=== PATIENT | male | born 1960 | race Caucasian/White ===

== ENCOUNTER 2018-08-02 08:59 | Outpatient (REF) | payer BC, SELFPAY ==
[2018-08-02 13:10] LABS: Cholesterol 198 mg/dL (50-200); HDL Cholesterol 64 mg/dL (40-60); LDL CHOLESTEROL 117 mg/dL (<100); Triglyceride 69 mg/dL (30-150)
== END 2018-08-02 09:19 ==
LOC: NCHCN 08:59
PROVIDERS: PCP Internal Medicine; Visit Provider Internal Medicine
DX: Z00.00 Encounter for general adult medical examination without abnormal findings (principal); Z13.220 Encounter for screening for lipoid disorders
CPT/HCPCS: 80061; 83721

== ENCOUNTER 2020-01-21 16:15 | Outpatient (REF) | payer BC, SELFPAY ==
[2020-01-21 21:24] LABS: Calculated LDL 122 mg/dL (<100); Cholesterol 217 mg/dL (<200); HDL Cholesterol 62 mg/dL (40-60); Triglyceride 166 mg/dL (<150)
== END 2020-01-21 16:35 ==
LOC: NCHCN 16:15
PROVIDERS: PCP Internal Medicine; Visit Provider Family Medicine
DX: Z00.00 Encounter for general adult medical examination without abnormal findings (principal); Z13.220 Encounter for screening for lipoid disorders
CPT/HCPCS: 80061

== ENCOUNTER 2021-01-22 10:00 | Outpatient (REF) | payer BC, SELFPAY ==
[2021-01-22 13:51] LABS: Calculated LDL 150 mg/dL (<100); Cholesterol 231 mg/dL (<200); HDL Cholesterol 66 mg/dL (40-60); Triglyceride 75 mg/dL (<150)
== END 2021-01-22 10:01 | disposition home or self-care (01) ==
LOC: NCHCN 10:00
PROVIDERS: PCP Internal Medicine; Visit Provider Family Medicine
DX: Z13.220 Encounter for screening for lipoid disorders (principal)
CPT/HCPCS: 80061

== ENCOUNTER 2021-07-27 09:12 | Outpatient (REF) | payer BC, SELFPAY ==
[2021-07-27 17:30] LABS: Calculated LDL 124 mg/dL (<100); Cholesterol 206 mg/dL (<200); HDL Cholesterol 69 mg/dL (40-60); Triglyceride 68 mg/dL (<150)
== END 2021-07-27 09:13 | disposition home or self-care (01) ==
LOC: NCHCN 09:12
PROVIDERS: PCP Internal Medicine; Visit Provider Family Medicine
DX: Z13.220 Encounter for screening for lipoid disorders (principal)
CPT/HCPCS: 80061

== ENCOUNTER 2022-03-31 16:31 | Outpatient (REF) | payer BC, SELFPAY ==
[2022-03-31 14:36] LABS: ALT 44 U/L (16-63); AST 25 U/L (15-37); Albumin 4.3 g/dL (3.4-5.0); Alkaline Phosphatase 73 U/L (46-116); Anion Gap 8.2 mmol/L (3-11); BUN 15 mg/dL (7-18); Bilirubin, Total 1.3 mg/dL (0.2-1.0); CO2 28.8 mmol/L (21.0-32.0); Calcium 9.1 mg/dL (8.5-10.1); Calculated LDL 142 mg/dL (<100); Chloride 103 mmol/L (98-107); Cholesterol 228 mg/dL (<200); Estimated GFR 86.16 (mL/min/1.73m2); Glucose 96 mg/dL (74-106); HDL Cholesterol 61 mg/dL (40-60); Potassium 4.1 mmol/L (3.5-5.1); Sodium 140 mmol/L (136-145); Total Protein 6.9 g/dL (6.4-8.2); Triglyceride 128 mg/dL (<150)
== END 2022-03-31 16:32 | disposition home or self-care (01) ==
LOC: NCHCN 16:31
PROVIDERS: PCP Internal Medicine; Visit Provider Family Medicine
DX: Z13.220 Encounter for screening for lipoid disorders (principal); Z00.00 Encounter for general adult medical examination without abnormal findings; N40.0 Benign prostatic hyperplasia without lower urinary tract symptoms
CPT/HCPCS: 80053; 80061

== ENCOUNTER 2023-01-11 08:35 | Day surgery (SDC) | payer BC, SELFPAY ==
[2023-01-11 08:52] VITALS: BP 118/84; PULSE 58; RESP 16; TEMP 36.4; O2SAT 98
[2023-01-11] MEDS: Lactated Ringers 1,000 ML 80 ML IV (09:15)
--- NOTE | 2023-01-11 10:11 | W.ANESPRE ---
General Info Date of Service Date Performed: 01/11/23 Height: 5 ft 9 in Weight: 80 kg Body Mass Index (BMI): 26.0 Surgical Procedure: Operation Date: 01/11/23 09:50 Proposed Procedure Side Surgeon p Colonoscopy Jarrett Broussard MD Actual Procedure Side Surgeon p Colonoscopy Not Applicable Jarrett Broussard MD Meds Allergies and Home Medications Allergies Allergy/AdvReac Type Severity Reaction Status Date / Time No Known Allergies Allergy Verified 01/11/23 08:51 Home Medication Medication Instructions Recorded ibuprofen 200 mg capsule 200 mg PO Q6H PRN 08/26/22 bisacodyl 5 mg tablet,delayed 5 mg PO ONCE #4 tabs 12/15/22 release (Dulcolax (bisacodyl)) polyethylene glycol 3350 17 17 g PO ONCE #238 grams 12/15/22 gram/dose oral powder Current Visit Medications: Current Medications Generic Name Dose Route Start Last Admin Trade Name Freq PRN Reason Stop Dose Admin Ringer's Solution 1,000 mls @ 80 mls/hr 01/11/23 06:00 01/11/23 09:15 IV 02/09/23 23:59 80 mls/hr INFUSION FRANKLIN Administration IV Miscellaneous Supplies 1 each 01/11/23 06:00 Iv Access IV 02/09/23 23:59 DIRECTED [place]LIN Sodium Chloride 0 ml 01/11/23 06:00 Normal Saline Flush 10 Ml Syr IV 02/09/23 23:59 PRN PRN Sodium Chloride 0 ml 01/11/23 06:00 Normal Saline 10 Ml Vial IJ 02/09/23 23:59 DIRECTED PRN Sterile Water 0 ml 01/11/23 06:00 Water,Injection,Sterile 10 Ml Vial IJ 02/09/23 23:59 DIRECTED PRN PFSH Active Problems Active Problems: Problem Status Onset Code 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 History of eustachian tube dysfunction Z86.69 Medical History Medical History BPH (benign prostatic hyperplasia) Cerumen impaction Hyperlipidemia Screening for colon cancer Surgical History Surgical History Hx of foot surgery Tobacco Smoking/Tobacco Use Status: Never Alcohol Alcohol Intake: current Alcohol intake frequency: 0-2 drinks per day Substance Use Substance use: Never Substance use type: does not use Details: alcohol t-3 Vital Signs and Lab Results Vital Signs Most Recent Vital Signs in EMR: Most Recent Vital Signs Temp Pulse Resp BP Pulse Ox 36.4 C L 58 L 16 118/84 98 01/11/23 08:52 01/11/23 08:52 01/11/23 08:52 01/11/23 08:52 01/11/23 08:52 Lab Results Blood Type / Crossmatch: No Data to Display Complete Blood Count: No Data to Display Complete Metabolic Panel: No Data to Display Liver Function Panel: No Data to Display Coagulation Panel: No Data to Display Cardiac Panel: No Data to Display Arterial Blood Gas: No Data to Display Venous Blood Gas: No Data to Display Pancreas Panel: No Data to Display Thyroid Panel: No Data to Display Infectious Disease: No Data to Display Blood Cultures: No Data to Display Toxicology Panel: No Data to Display Anesthesia Assessment and Plan Anesthesia History Personal History: No History of Anesthesia Complications Family History: No Family History of Anesthesia Complications Exercise Tolerance Exercise Tolerance: Metabolic Equivalents>4 Pertinent Negatives Pertinent Negatives: No Symptoms of GERD Cardiac & Pulmonary Exam Cardiac Exam: Normal S1/S2 Heart Sounds Pulmonary Exam: Clear Bilateral Breath Sounds Implantable Cardiac Device Does patient have a Pacemaker or an ICD?: No Airway Exam Known Difficult Airway: No Mallampati Class: 2 Mouth Opening: Normal (> 3cm) Thyromental Distance: Greater than 3 cm Neck Range of Motion: Full ROM Neck Circumference: Normal Teeth Condition: Normal Dentition ASA Classification ASA Score: ASA 2 Emergency Case?: No NPO Status NPO Status: NPO Clears >2 hours, Solids >8 hours Anesthesia Plan Resuscitation Status: Full Code Anesthesia Technique: General Anesthesia Airway Planned: Natural Airway Monitors Used: Standard Monitors
[2023-01-11 10:12] VITALS: BMI 26.0
--- NOTE | 2023-01-11 10:23 | BOWEL_PTH ---
PATIENT: Kris Diaz LOC: [facility] U#:[id number] AGE/SX: 62/M ROOM: RE01/11/[address]: Jarrett Broussard : 1960 BED: DIS: 01/11/2023 SPEC #: [id number] RECD: 01/11/23 12:54 STATUS: LISA RE #: [id number] STAN: 01/11/23 10:[address]: Jarrett Broussard DEPT: Surgical Specimen RECD BY: Kenya Riddle ENTERED: 01/11/23 12:56 SP TYPE: Bowel OTHR DR: Joe Wilkins Tissues: 1 - BIOPSY BOWEL 2 - BIOPSY BOWEL 3 - BIOPSY BOWEL Procedures: GROSS AND MICRO LEVEL 4 Comments: [id number]
[2023-01-11 10:50] VITALS: BP 108/76; PULSE 68; RESP 18; TEMP 35.6; O2SAT 97
--- NOTE | 2023-01-11 11:01 | COLE_ITS ---
Date of service: 01/11/23 Time of Service: 11:01 Colonoscopy Report Procedure Description: Procedures performed: 1. Colonoscopy with snare polypectomy x2 2. Cold forceps polypectomy x1 3. Ablation/fulguration/destruction of colon polyp x3 Preoperative diagnosis: Screening colonoscopy Postoperative diagnosis: Colon polyps, mild grade 1 internal hemorrhoids Surgeon: Radha Broussard Anesthesia: Shon Indication for procedure: Patient is a 62-year-old man with no prior colo noscopy. No family history of colon cancer. No symptoms. Findings: In the proximal sigmoid colon a 10-12 mm pedunculated polyp was removed with hot snare technique. It was removed complete, as 1 piece. In the distal sigmoid colon another 5-7 mm sessile polyp was removed with hot snare technique. In the proximal rectum a flat 5-7 mm polyp was removed with cold forceps technique to confirm hyperplastic histology (suspected). 3 other hyperplastic?appearing polyps in the rectum were ablated with the tip of the hot snare. Minimal/mild grade 1 internal hemorrhoids noted on retroflexion. Surveillance/follow-up recommendations: The sigmoid colon polyp warrants a 3- year repeat colonoscopy. Complications: None Blood loss: Minimal Specimens:?? YES Quality of Prep:?? Good Procedure in detail: Written consent was obtained from the patient who was in agreement with the risks, benefits and indications of the procedure.? We went to the endoscopy suite and laid the patient in left lateral decubitus position.? Anesthesia was administered which was tolerated well.? A timeout was performed and when we are all in agreement we began the procedure. Digital rectal exam and visual examination was performed and within normal limits.? A well?lubricated colonoscope was advanced without difficulty all the way to the cecum identified by the ileocecal valve, and triangular folds and appendiceal orifice.? The terminal ileum was briefly intubated and look normal. The scope was then withdrawn.? Retroflexion was performed in the rectum.? The findings/interventions are noted above. The scope was then removed and the patient tolerated the procedure well and was then taken back to the PACU in hemodynamically stable condition.
--- NOTE | 2023-01-11 11:04 | W.PM.DSUDISC ---
Date of service: 01/11/23 Time of Service: 11:04 Discharge Plan Disposition Patient Disposition: Home Condition: Good Discharge Details Attending Provider: Jarrett Broussard Primary Care Provider: Joe Wilkins Home Meds and New Rx's Prescriptions: No Action bisacodyl [Dulcolax (bisacodyl)] 5 mg tablet,delayed release (DR/EC) 5 mg PO ONCE Qty: 4 0RF Rx Instructions: Take per colonoscopy instructions provided by ordering providers office polyethylene glycol 3350 17 gram/dose powder 17 g PO ONCE Qty: 238 0RF Rx Instructions: Take per colonoscopy instructions provided by ordering providers office ibuprofen 200 mg capsule 200 mg PO Q6H PRN Discharge Instructions Stand Alone Forms: Colonoscopy Post Instructions Activity:: Activity as Tolerated Diet:: As Tolerated Discharge Orders Discharge Orders: Discharge Order (Routine); Ordered 01/11/23 Ordered By: Jarrett Broussard DS: Diagnosis Discharge Diagnosis (1) Colon polyp: Status: Acute Asessment and Plan: FINDINGS: Some significant polyps were found today and removed. This is the reason you do the colonoscopy. You should have another colonoscopy in 3 years because of the findings today.
--- NOTE | 2023-01-11 11:04 | W.ANESPOSTOP ---
Postoperative Evaluation Date, Time and Location Date Performed: 01/11/23 Time Performed: 11:05 Patient Location: Day Surgery Unit Vital Signs Most Recent Imported Vital Signs: Most Recent Vital Signs Temp Pulse Resp BP Pulse Ox 36.4 C L 58 L 16 118/84 98 01/11/23 08:52 01/11/23 08:52 01/11/23 08:52 01/11/23 08:52 01/11/23 08:52 Pain Score Most Recent Pain Score: Most Recent Pain Score Pain Level 0 01/11/23 08:52 Assessment Mental Status: Awake (Alert & Oriented to Patient Baseline) Airway and Respiratory Function: Patent airway with normal (patient baseline) respiratory exam Cardiovascular Function: Hemodynamically Stable Hydration Status: Adequately Hydrated Nausea & Vomiting: No Nausea or Vomiting Pain: Pt. Denies Any Pain Peripheral Nerve Block: Patient did not receive a nerve block
[2023-01-11 11:30] VITALS: BP 123/91; PULSE 53; RESP 18; TEMP 36; O2SAT 99
== END 2023-01-11 11:43 | disposition home or self-care (01) ==
PROVIDERS: PCP Family Medicine; Visit Provider Student in an Organized Health Care Education/Training Program
PROC: 0DJD8ZZ Inspection of Lower Intestinal Tract, Via Natural or Artificial Opening Endoscopic (ICD-10-PCS; CPT 45378; principal; 2023-01-11 09:45)
DX: Z12.11 Encounter for screening for malignant neoplasm of colon (principal); D12.5 Benign neoplasm of sigmoid colon; K64.0 First degree hemorrhoids
CPT/HCPCS: 45385; 45384; 45380; 88305

== ENCOUNTER 2023-05-18 10:02 | Outpatient (REF) | payer BC, SELFPAY ==
[2023-05-18 15:27] LABS: Anion Gap 7.1 mmol/L (3-11); BUN 16 mg/dL (7-18); CO2 29.9 mmol/L (21.0-32.0); CREATININE 1.1 mg/dL (0.70-1.30); Calcium 9.6 mg/dL (8.5-10.1); Calculated LDL 168 mg/dL (<100); Chloride 104 mmol/L (98-107); Cholesterol 260 mg/dL (<200); Estimated GFR 76.37 (mL/min/1.73m2); Glucose 105 mg/dL (74-106); HDL Cholesterol 70 mg/dL (40-60); Potassium 4.6 mmol/L (3.5-5.1); Sodium 141 mmol/L (136-145); Triglyceride 112 mg/dL (<150)
== END 2023-05-18 10:03 | disposition home or self-care (01) ==
LOC: NCHCN 10:02
PROVIDERS: PCP Family Medicine; Visit Provider Family Medicine
DX: Z00.00 Encounter for general adult medical examination without abnormal findings (principal); E78.5 Hyperlipidemia, unspecified
CPT/HCPCS: 80048; 80061

== ENCOUNTER 2023-11-23 21:06 | Outpatient (REF) | payer BC, SELFPAY ==
[2023-11-23 14:52] LABS: Calculated LDL 88 mg/dL (<100); Cholesterol 172 mg/dL (<200); HDL Cholesterol 77 mg/dL (40-60); Triglyceride 38 mg/dL (<150)
== END 2023-11-23 21:07 | disposition home or self-care (01) ==
LOC: NCHCN 21:06
PROVIDERS: PCP Family Medicine; Visit Provider Family Medicine
DX: E78.5 Hyperlipidemia, unspecified (principal)
CPT/HCPCS: 80061

== ENCOUNTER 2024-05-28 13:08 | Outpatient (REF) | payer BC, SELFPAY ==
[2024-05-28 14:42] LABS: Calculated LDL 114 mg/dL (<100); Cholesterol 196 mg/dL (<200); HDL Cholesterol 72 mg/dL (40-60); Triglyceride 54 mg/dL (<150)
== END 2024-05-28 13:09 | disposition home or self-care (01) ==
LOC: NCHCN 13:08
PROVIDERS: PCP Family Medicine; Visit Provider Family Medicine
DX: E78.5 Hyperlipidemia, unspecified (principal)
CPT/HCPCS: 80061

== ENCOUNTER 2025-01-10 21:33 | Outpatient (REF) | payer BC, SELFPAY ==
[2025-01-13 10:24] LABS: HIV-1/2 Ag & Ab Screen Negative (Negative)
[2025-01-13 10:40] LABS: Hepatitis C Ab w Rflx HCV PCR Negative (Negative)
[2025-01-13 13:08] LABS: Syphilis Serology (RPR) Negative (Negative)
[2025-01-13 14:44] LABS: HSV Type 2 Ab, IgG Negative (Negative)
== END 2025-01-10 21:34 | disposition home or self-care (01) ==
LOC: NCHCN 21:33
PROVIDERS: PCP Family Medicine; Visit Provider Family Medicine
DX: Z11.3 Encounter for screening for infections with a predominantly sexual mode of transmission (principal)
CPT/HCPCS: 86803; 87389; 86592; 86695; 86696

== ENCOUNTER 2025-03-19 14:51 | Outpatient (REF) | payer BC, SELFPAY ==
[2025-04-16 17:50] LABS: PSA, Diagnostic 27.4 ng/mL (<=4.5)
== END 2025-03-19 14:52 | disposition home or self-care (01) ==
LOC: LBN 14:51
PROVIDERS: PCP Family Medicine; Visit Provider Urology
DX: R97.20 Elevated prostate specific antigen [PSA] (principal)
CPT/HCPCS: 84153

== ENCOUNTER 2025-04-01 15:39 | Outpatient (REF) | payer BC, SELFPAY ==
[2025-04-01 21:10] LABS: Cholesterol 154 mg/dL (<200); Glucose 93 mg/dL (74-106); HDL Cholesterol 59 mg/dL (>40)
[2025-04-02 19:31] LABS: PSA, Screening 33.7 ng/mL (<=4.5)
== END 2025-04-01 15:40 | disposition home or self-care (01) ==
LOC: NCHCN 15:39
PROVIDERS: PCP Family Medicine; Visit Provider Family Medicine
DX: Z12.5 Encounter for screening for malignant neoplasm of prostate (principal); Z00.00 Encounter for general adult medical examination without abnormal findings; E78.5 Hyperlipidemia, unspecified
CPT/HCPCS: 80061; 82947; 84153